=== PATIENT | male | born 1965 | race Caucasian/White ===

== ENCOUNTER 2016-08-22 10:38 | Emergency (ER) | payer BC ==
[2016-08-22 12:31] VITALS: BP 135/92
--- NOTE | 2016-08-22 12:45 | UC ---
Back Pain HPI - HPI Summary HPI Summary: 50 yo male with right buttock pain radiating down leg x months worse over the past week now having trouble sleeping due to pain no bowel or bladder dysfunction no hx trauma or CA - History of Current Complaint Chief Complaint: UCBackPain Stated Complaint: BACK,LEG PAIN Time Seen by Provider: 08/22/16 12:31 Hx Obtained From: Patient Onset/Duration: Sudden Onset, Lasting Weeks Timing: Constant Severity Initially: Mild Severity Currently: Moderate Pain Intensity: 7 Pain Scale Used: 0-10 Numeric Back Pain: Is Discrete @ - right buttock, Radiates To - down leg Character: Aching, Throbbing Aggravating: Movement, Bending Alleviating: Rest Associated Signs And Symptoms: Positive: Negative Related History: Similar Episode Dx As - sciatica - Allergies/Home Medications Allergies/Adverse Reactions: Allergies Allergy/AdvReac Type Severity Reaction Status Date / Time No Known Allergies Allergy Verified 08/22/16 12:20 Home Medications: Home Medications Hydrochlorothiazide TAB* [Hydrodiuril TAB*] 25 mg PO DAILY 08/22/16 [History Confirmed 08/22/16] Naproxen Sodium 220 mg PO BID PRN 08/22/16 [History Confirmed 08/22/16] PMH/Surg Hx/FS Hx/Imm Hx Previously Healthy: Yes Cardiovascular History Of: Reports: Hypertension - Surgical History Surgical History: Yes Surgery Procedure, Year, and Place: HYDROCELE REPAIR - Family History Known Family History: Positive: Hypertension, Diabetes Negative: Cardiac Disease - Social History Alcohol Use: Daily Substance Use Type: None Smoking Status (MU): Heavy Every Day Tobacco Smoker Type: Cigarettes Amount Used/How Often: 1 PPD Have You Smoked in the Last Year: Yes Household Exposure Type: Cigarettes Review of Systems Constitutional: Negative Skin: Negative Eyes: Negative ENT: Negative Respiratory: Negative Cardiovascular: Negative Gastrointestinal: Negative Genitourinary: Negative Motor: Negative Neurovascular: Negative Musculoskeletal: Arthralgia, Myalgia Neurological: Negative Psychological: Negative All Other Systems Reviewed And Are Negative: Yes Physical Exam Triage Information Reviewed: Yes Appearance: Well-Appearing, No Pain Distress, Well-Nourished, Thin Vital Signs: Initial Vital Signs Temp 98.3 F 08/22/16 12:22 Pulse 87 08/22/16 12:22 Resp 18 08/22/16 12:22 BP 135/92 08/22/16 12:22 Pulse Ox 99 01/04/17 12:22 Vital Signs Reviewed: Yes Eyes: Positive: Conjunctiva Clear ENT: Positive: Hearing grossly normal. Negative: Nasal congestion, Nasal drainage, Trismus, Muffled/hoarse voice Neck: Positive: Supple, Nontender, No Lymphadenopathy Respiratory: Positive: Lungs clear, Normal breath sounds, No respiratory distress, No accessory muscle use Cardiovascular: Positive: RRR, No Murmur Musculoskeletal: Positive: ROM Intact, No Edema Neurological: Positive: Alert, Other: - DTRs symmetrical and normal/down going toes Psychological Exam: Normal Skin Exam: Normal Back Pain Course/Dx - Differential Dx/Diagnosis Provider Diagnoses: sciatica (R) Discharge - Discharge Plan Condition: Stable Disposition: HOME Prescriptions: Cyclobenzaprine TAB* [Flexeril TAB*] 5 mg PO TID PRN #21 tab PRN Reason: Spasms Patient Education Materials: Sciatica (ED) Forms: *Work Release Additional Instructions: take two of the OTC naproxen twice daily with food for pain don't take muscle relaxant and drive or work SEE YOUR PROVIDER FOR RECHECK NEXT WEEK Images Front/Back of Body, Lg ([place]): 1 - pain startes here 2 - radiates here. (+) SLR at 30 degrees. (-) XSLR
== END 2016-08-22 13:02 | disposition home or self-care (01) ==
LOC: UCCORT 10:38
DX: M54.31 Sciatica, right side (principal); I10 Essential (primary) hypertension; F17.210 Nicotine dependence, cigarettes, uncomplicated
CPT/HCPCS: 99202; G0463

== ENCOUNTER 2017-07-02 09:50 | Emergency (ER) | payer OTHER ==
[2017-07-02 11:12] VITALS: BP 152/97
--- NOTE | 2017-07-02 11:45 | UC ---
Lower Extremity/Ankle HPI - HPI Summary HPI Summary: PT HAD LUMBAR DISKECTOMY 12/2016. PT FOLLOWS WITH [facility] AND STATES THAT SINCE THE SURGERY HIS RADICULOPATHY SX HAVE RETURNED AND FOUND TO BE DUE TO SCAR TISSUE. HIS SX FLARE FROM TIME TO TIME AND PT CALLED OUT OF WORK TODAY. REQUESTING A WORK NOTE. DENIES SADDLE ANESTHESIA. - History of Current Complaint Chief Complaint: UCLowerExtremity Stated Complaint: RIGHT LEG PAIN Time Seen by Provider: 07/02/17 11:27 Hx Obtained From: Patient Onset/Duration: Sudden Onset, Lasting Days, Still Present Severity Initially: Moderate Severity Currently: Moderate Pain Intensity: 3 Pain Scale Used: 0-10 Numeric Aggravating Factor(s): Standing, Ambulation Alleviating Factor(s): Rest Able to Bear Weight: Yes - Allergies/Home Medications Allergies/Adverse Reactions: Allergies Allergy/AdvReac Type Severity Reaction Status Date / Time No Known Allergies Allergy Verified 07/02/17 11:05 Home Medications: Home Medications Gabapentin CAP(*) [Neurontin 300 CAP(*)] 600 mg PO TID PRN 07/02/17 [History Confirmed 07/02/17] Multiple Vitamins W/ Minerals [Multivitamin Men 50+] 1 tab PO DAILY 07/02/17 [ History Confirmed 07/02/17] PMH/Surg Hx/FS Hx/Imm Hx Cardiovascular History: Hypertension - Surgical History Surgical History: Yes Surgery Procedure, Year, and Place: HYDROCELE REPAIR - Family History Known Family History: Positive: Hypertension, Diabetes Negative: Cardiac Disease - Social History Alcohol Use: Daily Alcohol Amount: beer daily Substance Use Type: None Smoking Status (MU): Heavy Every Day Tobacco Smoker Type: Cigarettes Amount Used/How Often: 1 PPD Have You Smoked in the Last Year: Yes Household Exposure Type: Cigarettes Review of Systems Constitutional: Negative Skin: Negative ENT: Negative Respiratory: Negative Cardiovascular: Negative Neurological: Paresthesia, Numbness All Other Systems Reviewed And Are Negative: Yes Physical Exam Triage Information Reviewed: Yes Appearance: Well-Appearing, No Pain Distress, Well-Nourished Vital Signs: Initial Vital Signs Temp 98.3 F 07/02/17 11:07 Pulse 91 07/02/17 11:07 Resp 18 07/02/17 11:07 BP 152/97 07/02/17 11:07 Vital Signs Reviewed: Yes Eyes: Positive: Conjunctiva Clear ENT: Positive: Hearing grossly normal Neck: Positive: Supple Respiratory: Positive: No respiratory distress, No accessory muscle use Cardiovascular: Positive: Pulses Normal Abdomen Description: Positive: Soft Musculoskeletal: Positive: No Edema Neurological: Positive: Alert Psychological: Positive: Age Appropriate Behavior Skin: Negative: rashes Lower Extremity Course/Dx - Differential Dx/Diagnosis Provider Diagnoses: RIGHT LOWER LEG PAIN/RADICULOPATHY Discharge - Discharge Plan Condition: Stable Disposition: HOME Patient Education Materials: Lumbar Radiculopathy (ED) Forms: *Work Release Referrals: No Primary Care Phys,NOPCP [Primary Care Provider] - Additional Instructions: KEEP YOUR FOLLOW-UP WITH [facility] NEXT WEEK. NOTE FOR WORK PROVIDED TODAY.
== END 2017-07-02 11:45 | disposition home or self-care (01) ==
LOC: UCCORT 09:50
DX: M79.661 Pain in right lower leg (principal); M54.16 Radiculopathy, lumbar region; I10 Essential (primary) hypertension; F17.210 Nicotine dependence, cigarettes, uncomplicated
CPT/HCPCS: 99211; G0463

== ENCOUNTER 2018-03-06 16:37 | Emergency (ER) | payer OTHER ==
[2018-03-06 17:36] VITALS: BP 135/82
--- NOTE | 2018-03-06 17:37 | UC ---
Hand/Wrist HPI - HPI Summary HPI Summary: 52 yo male presents with puncture wound to LEFT hand one week ago. He tells me that he was at home using a claw hammer and he missed and hit the left thenar eminence causing a small puncture wound. Pt cleansed the area and continued working. Over the last 2-3 days has noticed increased pain, redness, and swelling to the area. Unsure when his last tetanus was. Denies numbness or tingling. He also admits to "poking" the area at home with a hot needle trying to drain fluid. - History Of Current Complaint Chief Complaint: Rory Stated Complaint: HAND LAC - POSS INFECTION Time Seen by Provider: 03/06/18 17:36 Hx Obtained From: Patient Onset/Duration: Gradual Onset Severity Initially: Mild Severity Currently: Mild Pain Intensity: 3 Pain Scale Used: 0-10 Numeric - Allergies/Home Medications Allergies/Adverse Reactions: Allergies Allergy/AdvReac Type Severity Reaction Status Date / Time No Known Allergies Allergy Verified 03/06/18 17:36 Home Medications: Home Medications Lisinopril/HCTZ 20/12.5(NF) [Zestoretic 20/12.5(NF)] 1 tab PO DAILY 03/06/18 [ History Confirmed 03/06/18] PMH/Surg Hx/FS Hx/Imm Hx Cardiovascular History: Hypertension - Surgical History Surgical History: Yes Surgery Procedure, Year, and Place: HYDROCELE REPAIR. back surgery - Family History Known Family History: Positive: Hypertension, Diabetes Negative: Cardiac Disease - Social History Lives: With Family Alcohol Use: Daily Alcohol Amount: 4-5 beers daily Substance Use Type: None Smoking Status (MU): Heavy Every Day Tobacco Smoker Type: Cigarettes Amount Used/How Often: 1 PPD Have You Smoked in the Last Year: Yes Household Exposure Type: Cigarettes Review of Systems Constitutional: Negative Skin: Other - Left hand puncture wound Respiratory: Negative Cardiovascular: Negative Motor: Negative Neurovascular: Negative Musculoskeletal: Negative Neurological: Negative Psychological: Negative All Other Systems Reviewed And Are Negative: Yes Physical Exam - Summary Physical Exam Summary: GENERAL: NAD. WDWN. No pain distress. SKIN: 3mm puncture wound to left thenar eminence with 1.0cm of surrounding erythema and mild edema. No active drainage, streaking, or ecchymosis. NECK: Supple. Nontender. No lymphadenopathy. CHEST: No accessory muscle use. Breathing comfortably and in no distress. CV: Pulses intact radial and ulnar. MSK: Left hand and all fingers FROM. Strength 5/5 including support manager strength. NEURO: Alert. Sensations intact hand and all fingers. PSYCH: Age appropriate behavior. Triage Information Reviewed: Yes Vital Signs: Initial Vital Signs Temp 98.1 F 03/06/18 17:31 Pulse 89 03/06/18 17:31 Resp 16 03/06/18 17:31 BP 135/82 03/06/18 17:31 Pulse Ox 98 03/06/18 17:31 Hand/Wrist Course/Dx - Course Course Of Treatment: Left hand puncture wound with cellulitis. tdap updated today. Rx for augmentin. F/u if not improving in 2-3 days. - Differential Dx/Diagnosis Provider Diagnoses: Left hand puncture wound. Left hand cellulitis Discharge - Sign-Out/Discharge Documenting (check all that apply): Patient Departure - Discharge Plan Condition: Stable Disposition: HOME Prescriptions: Amoxicillin/Clavulanate TAB* [Augmentin TAB 875*] 875 mg PO BID #20 tab Patient Education Materials: Cellulitis (DC) Referrals: Lupe Stroud MD [Primary Care Provider] - Additional Instructions: If you develop a fever, shortness of breath, chest pain, new or worsening symptoms - please call your PCP or go to the ED. Per institutional requirements, I have reviewed the chart, however, I was not consulted specifically or made aware of this patient by the above midlevel provider. I did not personally evaluate, interact with , or disposition this patient. - Billing Disposition and Condition Condition: STABLE Disposition: Home
[2018-03-06] MEDS ORDERED: Tetan/Diph/Pertus SYR(Tdap)* 0.5 ML SYR(BOOSTRIX) use SYR IM ONE (17:41)
== END 2018-03-06 17:56 | disposition home or self-care (01) ==
LOC: UCCORT 16:37
DX: S61.432A Puncture wound without foreign body of left hand, initial encounter (principal); L03.114 Cellulitis of left upper limb; W26.8XXA Contact with other sharp object(s), not elsewhere classified, initial encounter; Y93.9 Activity, unspecified; Y99.9 Unspecified external cause status
CPT/HCPCS: 90471; 90715; 99201; G0463